=== PATIENT | male | born 1950 | race Caucasian/White ===

== ENCOUNTER → 2021-04-27 | Outpatient (CLI) | payer MEDICARE | END | disposition home or self-care (01) | LOC: RAH 13:39 | PROVIDERS: ATTEND Physical Medicine & Rehabilitation | DX: M50.123 Cervical disc disorder at C6-C7 level with radiculopathy (principal); M48.02 Spinal stenosis, cervical region; M40.40 Postural lordosis, site unspecified | CPT/HCPCS: 72040 ==

== ENCOUNTER → 2021-05-17 | Outpatient (CLI) | payer MEDICARE | END | disposition home or self-care (01) | LOC: RAH 13:31 → EDUNIT# 14:00 | PROVIDERS: ATTEND Physical Medicine & Rehabilitation | DX: M47.22 Other spondylosis with radiculopathy, cervical region (principal); M50.223 Other cervical disc displacement at C6-C7 level; M48.02 Spinal stenosis, cervical region; M62.838 Other muscle spasm | CPT/HCPCS: 72141 ==

== ENCOUNTER → 2022-11-21 | Outpatient (CLI) | payer MEDICARE | END | disposition home or self-care (01) | LOC: RAH 10:57 | PROVIDERS: ATTEND Physical Medicine & Rehabilitation | DX: M47.24 Other spondylosis with radiculopathy, thoracic region (principal); M48.04 Spinal stenosis, thoracic region; M85.88 Other specified disorders of bone density and structure, other site; M25.78 Osteophyte, vertebrae | CPT/HCPCS: 72074 ==

== ENCOUNTER → 2022-12-20 | Outpatient (CLI) | payer MEDICARE | END | disposition home or self-care (01) | LOC: RAH 11:12 | PROVIDERS: ATTEND Physical Medicine & Rehabilitation | DX: M47.816 Spondylosis without myelopathy or radiculopathy, lumbar region (principal); M54.59 Other low back pain | CPT/HCPCS: 72114 ==

== ENCOUNTER → 2023-01-17 | Outpatient (CLI) | payer MEDICARE | END | disposition home or self-care (01) | LOC: RAH 12:15 | PROVIDERS: ATTEND Physical Medicine & Rehabilitation | DX: M47.22 Other spondylosis with radiculopathy, cervical region (principal); M50.122 Cervical disc disorder at C5-C6 level with radiculopathy; M48.02 Spinal stenosis, cervical region; M54.6 Pain in thoracic spine; N28.1 Cyst of kidney, acquired; Z88.8 Allergy status to other drugs, medicaments and biological substances | CPT/HCPCS: 72141; 72146 ==

== ENCOUNTER → 2023-11-18 | Outpatient (CLI) | payer MEDICARE | END | disposition home or self-care (01) | LOC: RAH 13:52 | PROVIDERS: ATTEND Physical Medicine & Rehabilitation | DX: M47.22 Other spondylosis with radiculopathy, cervical region (principal); M48.02 Spinal stenosis, cervical region | CPT/HCPCS: 72125 ==

== ENCOUNTER → 2024-09-02 | Outpatient (CLI) | payer MEDICARE ==
[2024-09-02] MEDS: REGADENOSON 0.4 MG/5 ML PF SYG IVP SCH (13:53)
== END | disposition home or self-care (01) ==
LOC: RAH 08:46
DX: I20.9 Angina pectoris, unspecified (principal)
CPT/HCPCS: 78452; 93017; J2785; A9500 ×2